=== PATIENT | female | born 1950 | race Caucasian/White ===

== ENCOUNTER → 2022-07-04 | Day surgery (SDC) | payer MEDICARE ==
[~2022-07-04] MED LIST: FLU VACC QS2022-23(65YR UP)/PF 240 MCG/0.7 ML SYRINGE IM ONE; PROPOFOL 20 ML ONE; PROPOFOL 200 MG/20 ML VIAL ONE
== END ==
LOC: CSHSDC 07:34
PROVIDERS: ATTEND Internal Medicine Cardiovascular Disease
DX: I48.0 Paroxysmal atrial fibrillation (principal); I50.43 Acute on chronic combined systolic (congestive) and diastolic (congestive) heart failure; I42.0 Dilated cardiomyopathy; Z86.711 Personal history of pulmonary embolism; Z98.890 Other specified postprocedural states
CPT/HCPCS: 92960; 93005; 93010; J2704

== ENCOUNTER 2024-01-19 23:33 | Emergency (ER) | payer MEDICARE ==
[2024-01-20 00:21] LABS: Hematocrit 29.6 % (34.9-44.5); Hemoglobin 9.6 g/dL (12.0-15.5); Mean Corpuscular HGB CONC 32.4 g/dL (32.0-36.0); Mean Corpuscular Hemoglobin 27.7 pg (27.0-33.0); Mean Corpuscular Volume 85.5 fl (81.6-98.3); Mean Platelet Volume 11.6 fl (7.4-10.4); Platelet Count 287 10x3/uL (150-450); RBC Distribution Width 15.7 % (11.5-14.5); Red Blood Cell (RBC) Count 3.46 10x6/uL (3.90-5.03); White Blood Cell (WBC) Count 20.1 10x3/uL (3.5-10.5)
[2024-01-20 00:29] LABS: ALT (SGPT) 17 U/L (8-55); AST (SGOT) 22 U/L (5-34); Albumin 2.2 g/dL (3.4-4.8); Alkaline Phosphatase 121 U/L (40-110); Anion Gap 22 mmol/L (10-20); BUN (Urea Nitrogen) 82 mg/dL (9.8-20.1); Bilirubin, Total 0.6 mg/dL (0.2-1.2); Calc. Creatinine Clearance 0 mL/min (70-130); Calcium 8.6 mg/dL (7.8-10.44); Carbon Dioxide 13 mmol/L (23-31); Chloride 110 mmol/L (98-107); Estimated GFR 7; Globulin 4.4 g/dL (2.4-3.5); Glucose 124 mg/dL (83-110); MDiff Complete? YES; Magnesium 2.2 mg/dL (1.6-2.6); Potassium 3.7 mmol/L (3.5-5.1); Protein, Total 6.6 g/dL (5.8-8.1); Sodium 141 mmol/L (136-145)
[2024-01-20 00:30] LABS: Troponin I 0.013 ng/mL (< 0.028)
[2024-01-20 00:31] LABS: Bilirubin Neg (Negative); Blood, Urine 250 (Negative); Clarity Cloudy (Clear); Glucose, Urine (Dipstick) Normal (Negative); Ketone, Urine 5 mg/dL (Negative); Leukocyte 500 (Negative); Nitrite Negative (Negative); Protein, Urine (Dipstick) 100 mg/dl (Neg-Trace)
[2024-01-20] MEDS ORDERED: cefTRIAXone (ROCEPHIN) 2 GM VIAL ONE (00:32)
[2024-01-20 00:43] LABS: Bacteria/HPF 4+ HPF (None Seen)
[2024-01-20 00:45] LABS: CAUTI Indications for Culture Alt mental st,lethar; Squamous Epithelial None Seen HPF (0-3); WBC/HPF 0-3 HPF (0-3)
[2024-01-20 00:46] LABS: Urine Culture Reflex No No
[2024-01-20 00:46] LABS: Band 26 % (5-11); Lymphocytes 7 % (21-51); Monocytes 5 % (0-10); Neutrophil 62 % (42-75)
[2024-01-20 00:59] LABS: Dohle Bodies SLIGHT; Elliptocytes SLIGHT = 2-5 cells (100X) (0-1/hpf); Ovalocytes SLIGHT = 2-5 cells (100X) (0-1/hpf); Platelet Adequacy Comment Appears Adequate; Toxic Granulation SLIGHT
[2024-01-20] MEDS ORDERED: Azithromycin 500 MG VIAL ONE (02:04)
[2024-01-20] MEDS ORDERED: Pantoprazole 80 MG in Sodium Chloride 0.9% 100 ML IVPB SCH (02:30)
[2024-01-20] MEDS ORDERED: NOREPINEPHRINE 8 MG/250 ML-D5W 250 ML ONE (02:32)
[2024-01-20 05:08] LABS: INR-International Normal Ratio 1.5; PTT 31.6 sec (22.0-33.0); Prothrombin Time 15.5 sec (9.5-12.1)
[2024-01-20 05:26] LABS: Lactic Acid 1.2 mmol/L (0.5-2.2)
[2024-01-20 05:49] LABS: Analyzer IN Cardio CS ER
[2024-01-20 05:51] LABS: Actual Bicarbonate (HCO3v) 13.4 mEq/L (22-28); Base Excess -13.8 mEq/L (-2 - +2)
[2024-01-20 05:52] LABS: Calcium, Ionized (venous) 1.09 mmol/L (1.16-1.32); Chloride (VBG) 108 mmol/L (98-106); Hematocrit-VBG 28 % (36.0-47.0); Hemoglobin (Hb) 9.5 g/dL (11.7-16.1); Potassium (VBG) 3.57 mmol/L (3.70-5.30); Sodium 140 mmol/L (133-146)
[2024-01-20 07:06] LABS: Puncture Site Other Site; RapidComm Collect By RN
== END 2024-01-20 04:56 | disposition short-term general hospital (02) ==
LOC: CSHERS 23:33
DX: A41.9 Sepsis, unspecified organism (principal); N39.0 Urinary tract infection, site not specified; K92.2 Gastrointestinal hemorrhage, unspecified; N17.9 Acute kidney failure, unspecified
CPT/HCPCS: 70450; 71045; 74176; 81001; 82805; 83605; 83690; 83735; 83880; 84484; 85610; 85730; 86850; 86900; 86901; 87040; 93005; J0456; 36415; 80053; 82274; 84443; 85025; 93010; C9113; J0696; J3490